=== PATIENT | male | born 1960 | race African-American/Black ===

== ENCOUNTER 2017-08-19 14:29 | Emergency (ER) | payer OTHER ==
[~2017-08-19] VITALS: Ht 175.3 cm; Wt 86.2 kg
[2017-08-19 14:40] VITALS: BP 144/81
[2017-08-19] MEDS ORDERED: Cefepime HCl 1 GM in NS 55 ML IV STA (15:02)
[2017-08-19] MEDS ORDERED: Morphine Sulfate 2mg/ml Inj IVP ONE (15:15)
[2017-08-19] MEDS ORDERED: Lidocaine 1% 10mg/ml/Epi 0.005mg/ml 30ml vial INJ ONE (15:15)
[2017-08-19] MEDS ORDERED: Tetanus/Diptheria/Pertussis Vaccine 0.5ml Syr IM ONE (15:15)
[2017-08-19] MEDS ORDERED: Vancomycin 1 GM in NS 275 ML IV ONE (15:15)
[2017-08-19] MEDS ORDERED: Ketorolac 30mg Inj IV ONE (15:15)
[2017-08-19] MEDS ORDERED: Cefepime 1gm vial ONE (15:21)
[2017-08-19 15:38] LABS: BASOPHILS % (AUTO) 0.7 % (0.0-2.0); EOSINOPHILS % (AUTO) 0.2 % (0.0-3.0); LYMPHOCYTES % (AUTO) 10.3 % (20.0-45.0); MEAN CORPUSCULAR HEMOGLOBIN 28.7 PG (27.0-31.0); MEAN CORPUSCULAR HGB CONC 30.8 G/DL (32.0-36.0); MEAN CORPUSCULAR VOLUME 93 FL (80-99); MEAN PLATELET VOLUME 7.4 FL (6.5-10.1); MONOCYTES % (AUTO) 9.5 % (1.0-10.0); NEUTROPHILS % (AUTO) 79.2 % (45.0-75.0); PLATELET COUNT 225 K/UL (150-450); RED BLOOD COUNT 4.83 M/UL (4.70-6.10); RED CELL DISTRIBUTION WIDTH 12.1 % (11.6-14.8); WHITE BLOOD COUNT 10.9 K/UL (4.8-10.8)
[2017-08-19 15:53] LABS: ANION GAP 8 mmol/L (5-15); CALCIUM 9.3 MG/DL (8.5-10.1); CARBON DIOXIDE 29 MMOL/L (21-32); CHLORIDE 103 MMOL/L (98-107); CREATININE 1.5 MG/DL (0.55-1.30); GLOMERULAR FILTRATION RATE 58.1 mL/min (>60); POTASSIUM 4.4 MMOL/L (3.5-5.1); SODIUM 140 MMOL/L (136-145)
[2017-08-19 15:54] LABS: INR 0.9 (0.9-1.1); PROTHROMBIN TIME 9.5 SEC (9.30-11.50)
[2017-08-19 15:58] LABS: ALANINE AMINOTRANSFERASE 39 U/L (12-78); ALBUMIN/GLOBULIN RATIO 0.7 (1.0-2.7); ASPARTATE AMINO TRANSFERASE 19 U/L (15-37); TOTAL PROTEIN 8.7 G/DL (6.4-8.2)
--- NOTE | 2017-08-19 16:17 | Emergency Room Report ---
History of Present Illness General Chief Complaint: Earache Source: Patient Present Illness HPI Patient presents with 2 days of increasing swelling pain around his left ear. Is also some fevers and chills. Also has a scratchy throat. There's been no drainage. Ear is swollen along with the area behind the ear. The patient had a developmental holes in that area that is Mom used to clean out but he never got into trouble. He denies any change in his hearing. No CP, dyspnea, NVD, dysuria, joint pain, neck stiffness. 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, disabled from driving truck Reviewed Nursing Documentation: PMH: Agreed, PSxH: Agreed Nursing Documentation-PMH Past Medical History: No Stated History Review of Systems All Other Systems: negative except mentioned in HPI Physical Exam Vital Signs Date Time Temp Pulse Resp B/P (MAP) Pulse Ox O2 Delivery O2 Flow Rate FiO2 08/19/17 14:40 100.2 118 14 144/81 96 Room Air Sp02 EP Interpretation: reviewed, normal General Appearance: well appearing, no apparent distress, GCS 15 Head: normocephalic, atraumatic Eyes: bilateral eye normal inspection ENT: normal pharynx, TMs + canals normal, moist mucus membranes, other - swelling superior to L ear and involving pinna minimally with erythema and fluctuance - pointing area - bilat preauricular holes Neck: full range of motion, supple Respiratory: lungs clear, normal breath sounds Cardiovascular #1: regular rate, rhythm Cardiovascular #2: 2+ radial (R) Gastrointestinal: normal inspection, normal bowel sounds, non tender, no mass, non-distended Musculoskeletal: back normal, gait/station normal, normal range of motion Neurologic: alert, oriented x3, grossly normal Psychiatric: mood/affect normal Skin: warm/dry, other - abscess above L ear Procedures Incision and Drainage Incision and Drainage : Consent: Verbal Blade Size: 11 I & D Procedure: betadine prep, sterile drapes applied, sterile dressing applied, gauze wick placed Wound Location: other - above L ear Wound's Depth, Shape: superficial Wound Explored: contaminated - pus and caseous material removed 3 ml removed Anesthesia: Lidocaine w/ Epi - area block Volume Anesthetic (ccs): 2 Patient Tolerated: Well Complications: None Medical Decision Making Diagnostic Impression: Primary Impression: Abscess of preauricular sinus ER Course Patient with abscess above L ear with preauricular cysts. Needs I and D. Also somatic complaints need eval with labs to determine extent of infection. Consideration for admission. Also will give doses of IV antibiotics. I and D of abscess, mirna well. Based on labs and clinical course, able to treat as outpatient. May need f/u with ENT. Patient stable for outpatient observation and treatment. Laboratory Tests Test 08/19/17 15:10 White Blood Count 10.9 K/UL (4.8-10.8) H Red Blood Count 4.83 M/UL (4.70-6.10) Hemoglobin 13.9 G/DL (14.2-18.0) L Hematocrit 45.0 % (42.0-52.0) Mean Corpuscular Volume 93 FL (80-99) Mean Corpuscular Hemoglobin 28.7 PG (27.0-31.0) Mean Corpuscular Hemoglobin Concent 30.8 G/DL (32.0-36.0) L Red Cell Distribution Width 12.1 % (11.6-14.8) Platelet Count 225 K/UL (150-450) Mean Platelet Volume 7.4 FL (6.5-10.1) Neutrophils (%) (Auto) 79.2 % (45.0-75.0) H Lymphocytes (%) (Auto) 10.3 % (20.0-45.0) L Monocytes (%) (Auto) 9.5 % (1.0-10.0) Eosinophils (%) (Auto) 0.2 % (0.0-3.0) Basophils (%) (Auto) 0.7 % (0.0-2.0) Prothrombin Time 9.5 SEC (9.30-11.50) Prothrombin Time INR 0.9 (0.9-1.1) PTT 33 SEC (23-33) Sodium Level 140 MMOL/L (136-145) Potassium Level 4.4 MMOL/L (3.5-5.1) Chloride Level 103 MMOL/L (98-107) Carbon Dioxide Level 29 MMOL/L (21-32) Anion Gap 8 mmol/L (5-15) Blood Urea Nitrogen 17 mg/dL (7-18) Creatinine 1.5 MG/DL (0.55-1.30) H Estimate Glomerular Filtration Rate 58.1 mL/min (>60) Glucose Level 108 MG/DL (74-106) H Lactic Acid Level 1.10 mmol/L (0.66-2.22) Calcium Level 9.3 MG/DL (8.5-10.1) Total Bilirubin 0.4 MG/DL (0.2-1.0) Aspartate Amino Transferase (AST) 19 U/L (15-37) Alanine Aminotransferase (ALT) 39 U/L (12-78) Alkaline Phosphatase 56 U/L (46-116) Total Creatine Kinase 131 U/L (26-308) Total Protein 8.7 G/DL (6.4-8.2) H Albumin 3.7 G/DL (3.4-5.0) Globulin 5.0 g/dL Albumin/Globulin Ratio 0.7 (1.0-2.7) L Last Vital Signs Date Time Temp Pulse Resp B/P (MAP) Pulse Ox O2 Delivery O2 Flow Rate FiO2 08/19/17 18:55 98.6 99 19 141/81 98 Room Air Status: improved Disposition: HOME, SELF-CARE Condition: Improved Scripts Bacitracin (Bacitracin) 28.4 Gm Oint...g. 1 APPLIC TOPIC BID, #10 GM Prov: Blake Rocha M.D. 08/19/17 Ibuprofen* (MOTRIN*) 600 Mg Tablet 600 MG ORAL Q6H Y for For Pain, #16 TAB Prov: Blake Rocha M.D. 08/19/17 Tramadol Hcl* (ULTRAM*) 50 Mg Tablet 50 MG ORAL Q6H Y for For Pain, #12 TAB 0 Refills Prov: Blake Rocha M.D. 08/19/17 Trimethoprim/Sulfamethoxazole 160/800* (BACTRIM DS TABLET*) 1 Each Tablet 1 TAB ORAL Q12H, #14 TAB 0 Refills Prov: Blake Rocha M.D. 08/19/17 Referrals: [facility],REFERRING (PCP) Blake Rocha M.D. Aug 19, 2017 16:17
[2017-08-19] MEDS ORDERED: Vancomycin 1gm inj IVPB ONE (16:20)
[2017-08-19] MEDS ORDERED: TRAMADOL HCL50 MG ORAL (16:23)
[2017-08-19] MEDS ORDERED: BACITRACIN15 GM TOPIC (16:23)
[2017-08-19] MEDS ORDERED: BACTRIM DS TAB1 EAC1 ORAL (16:23)
[2017-08-19] MEDS ORDERED: IBUPROFEN600 MG ORAL (16:23)
[2017-08-19 16:40] VITALS: BP 133/79
[2017-08-19 18:31] VITALS: BP 117/72
[2017-08-19 18:55] VITALS: BP 141/81
== END 2017-08-19 18:56 | disposition home or self-care (01) ==
LOC: EMR 15:00
DX: H60.02 Abscess of left external ear (principal); F17.200 Nicotine dependence, unspecified, uncomplicated; Z88.0 Allergy status to penicillin; Z23 Encounter for immunization
CPT/HCPCS: 10060; 36415; 80053; 82550; 83605; 85025; 85610; 85730; 87070; 87181; 87205; 90471; 90715; 96361; 96365; 96366; 96374; 99284; J0692; J1885; J2270; J2405; J3370; J7050